=== PATIENT | male | born 1980 | race Caucasian/White ===

== ENCOUNTER 2019-06-09 12:06 | Emergency (ER) | payer OTHER ==
[~2019-06-09] VITALS: Ht 185.4 cm; Wt 79.4 kg
[2019-06-09 13:07] LABS: CREATININE 1.2 mg/dL (0.6-1.3); POTASSIUM 3.9 mmol/L (3.5-5.1)
[2019-06-09 13:11] LABS: APTT 27.1 Seconds (25.0-31.3); PROTIME 10.5 Seconds (9.20-11.50)
[2019-06-09 13:21] LABS: ALBUMIN 4.4 g/dL (3.4-5.0); CK-MB MASS 0.9 ng/mL (<0.5-3.6); MAGNESIUM 1.9 mg/dL (1.8-2.4); TOTAL BILIRUBIN 0.7 mg/dL (<0.1-1.0); TOTAL PROTEIN 7.6 g/dL (6.4-8.2)
[2019-06-09 13:53] LABS: ABSOLUTE EOSINOPHILS 0.1 thou/uL (0.0-0.7); ABSOLUTE LYMPHOCYTES 1.1 thou/uL (0.8-5.3); ABSOLUTE MONOCYTES 0.4 thou/uL (0.0-1.2); ABSOLUTE NEUTROPHILS 4.4 thou/uL (1.6-8.1); BASOPHILS 0.5 %; EOSINOPHILS 1.6 %; HEMATOCRIT 42.9 % (42.0-52.0); HEMOGLOBIN 15.5 gm/dL (14.0-18.0); LYMPHOCYTES 18.2 %; MCH 30.6 pg (26.0-34.0); MCHC 36.1 g/dL (28.0-37.0); MCV 84.7 fL (80.0-100.0); MONOCYTES 6.1 %; MPV 8.2 fl. (7.2-11.1); NUCLEATED RBCS 0 /100WBC; PLATELET COUNT* 168 thou/uL (150-400); POLYS 73.6 %; RBC 5.07 mil/uL (4.50-6.00); RDW-CV 13.1 % (10.5-14.5)
[2019-06-09 13:55] VITALS: BP 109/68
--- NOTE | 2019-06-09 14:42 | EKG ---
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
== END 2019-06-09 13:56 | disposition home or self-care (01) ==
LOC: M.ERS 12:06
PROVIDERS: Family Medicine
DX: R07.89 Other chest pain (principal)